=== PATIENT | male | born 1995 | race Caucasian/White ===

== ENCOUNTER 2024-06-04 08:35 | Observation (INO) | payer SELFPAY ==
[2024-06-04] MEDS ORDERED: ONDANSETRON 4 MG/2 ML VIAL ONE ×2 (09:16→10:55)
[2024-06-04] MEDS ORDERED: NA CHLORIDE 0.9% 1,000 ML ONE (09:16)
[2024-06-04] MEDS ORDERED: KETOROLAC 30 MG/ML INJ ONE ×2 (09:16→10:55)
[2024-06-04 09:19] LABS: Absolute Basophils 0.1 K/uL (0-0.5); Absolute Eosinophils 0.2 K/uL (0-0.5); Absolute Lymphocytes (CBC) 1.9 K/uL (0.7-4.9); Absolute Monocytes 1.2 K/uL (0.1-1.3); Absolute Neutrophil 13.1 K/uL (1.8-8.0); Basophils % 0.7 % (0-1.3); Eosinophils % 0.9 % (0-4.4); Hematocrit 40.8 % (39.6-49.0); Hemoglobin 13.7 g/dL (13.6-17.9); Lymphocytes % 11.8 % (15.3-44.8); MCH 31.1 pg (27.0-35.0); MCHC 33.7 g/dL (32.0-36.0); MCV 92.3 fL (80-100); MPV 7.3 fL (7.6-11.3); Neutrophils % 79.6 % (41.7-73.7); Platelets 329 thou/uL (152-406); RBC Red Blood Cell Count 4.42 M/uL (4.33-5.43); Red Cell Distribution Width 14.6 % (12.1-15.2)
[2024-06-04 09:23] LABS: Specific Gravity > 1.030 (1.005-1.030); Sqamous Epithelial None Seen /HPF (None Seen); Urine Bacteria None Seen /HPF (<20); Urine Bilirubin NEGATIVE (Negative); Urine Blood Negative (Negative); Urine Clarity Clear (Clear); Urine Color Yellow (Yellow); Urine Culture Reflex Order NOT NEEDED; Urine Glucose NEGATIVE (Negative); Urine Ketones NEGATIVE (Negative); Urine Microscopic Reflex YN ORDER UMIC; Urine Mucus Slight /HPF (None Seen); Urine Nitrite NEGATIVE (Negative); Urine Protein TRACE (Negative); Urine RBC <5 /HPF (None Seen); Urine Urobilinogen Normal (Normal); Urine WBC <5 /HPF (<5)
--- NOTE | 2024-06-04 09:29 | RAD REPORT ---
EXAM DESCRIPTION: CT - Abdomen Pelvis W Contrast - 06/04/2024 9:15 am CLINICAL HISTORY: Abdominal pain COMPARISON: none. TECHNIQUE: Computed axial tomography of the abdomen pelvis was obtained. 100 cc Isovue-300 was admin istered intravenously. Oral contrast was not requested which limits evaluation of bowel and appendix All CT scans are performed using dose optimization technique as appropriate and may include automated exposure control or mA/KV adjustment according to patient size. FINDINGS: 13 millimeter low to intermediate density splenic lesion. Liver, pancreas, adrenals and kidneys are unremarkable No evidence diverticulitis. The distal appendix is mildly enlarged. Increased density within the appendix may be appendicolith or contrast from previous exam. No stranding within the adjacent fat seen. Persist. No free air There is no evidence of diverticulitis. Mild posterior subluxation of L5 on S1 IMPRESSION: Mild enlargement of the distal appendix may indicate appendicitis
[2024-06-04 09:35] LABS: Anion Gap 8.7 mEq/L (5.0-15.0); Bilirubin Total 1.3 mg/dL (0.2-1.0); Globulin 4.1 g/dL (2.3-3.5); Potassium 3.7 mEq/L (3.5-5.1); Protein, Total 8.1 g/dL (6.4-8.2)
[2024-06-04] MEDS ORDERED: PIPERACIL/TAZO 3.375 GM VIAL IV ONE (09:42)
--- NOTE | 2024-06-04 09:42 | ER ---
Nurse's Notes [facility] Name: Tono Levin Age: 29 yrs Sex: Male : 1995 Arrival Date: 06/04/2024 Time: 08:35 Bed 20 Private MD: Diagnosis: Unspecified acute appendicitis Presentation: 06/04 08:42 Chief complaint: Patient states: stabbing abd pain since 3 am, has been having vomiting iw and diarrhea also. Coronavirus screen: Client presents with at least one sign or symptom that may indicate coronavirus-19. Ebola Screen: No symptoms or risks identified at this time. Initial Sepsis Screen: Does the patient meet any 2 criteria? No. Patient's initial sepsis screen is negative. Does the patient have a suspected source of infection? No. Patient's initial sepsis screen is negative. Risk Assessment: Do you want to hurt yourself or someone else? Patient reports no desire to harm self or others. Onset of symptoms was June 04, 2024. 08:42 Method Of Arrival: Ambulatory iw 08:42 Acuity: PITO 3 iw Triage Assessment: 08:45 General: Appears in no apparent distress. uncomfortable, Behavior is cooperative, bp appropriate for age, anxious. Pain: Complains of pain in abdomen. EENT: No deficits noted. GI: Reports nausea, vomiting. Historical: - Allergies: 08:44 No Known Allergies; iw - Home Meds: 08:44 None [Active]; iw - PMHx: 08:44 None; iw - PSHx: 08:44 None; iw - Immunization history:: Adult Immunizations not up to date. - Infectious Disease History:: Denies. - Social history:: Smoking status: Patient/guardian denies using tobacco, Stopped _ months ago 1. Screenin:05 [facility] ED Fall Risk Assessment (Adult) History of falling in the last 3 months, bp including since admission No falls in past 3 months (0 pts) Confusion or Disorientation No (0 pts) Intoxicated or Sedated No (0 pts) Impaired Gait No (0 pts) Mobility Assist Device Used No (0 pt) Altered Elimination No (0 pt) Score/Fall Risk Level 0 - 2 = Low Risk. Abuse screen: Denies threats or abuse. Denies injuries from another. Nutritional screening: No deficits noted. Tuberculosis screening: No symptoms or risk factors identified. Assessment: 08:45 General: Appears uncomfortable, Behavior is appropriate for age. Pain: Complains of bp pain in abdomen. 10:05 Reassessment: PT JEFFRY WITH OR. bp 10:06 GI: Bowel sounds present X 4 quads. Abdomen is tender to palpation X 4 quads. bp Vital Signs: 08:42 BP 125 / 89; Pulse 88; Resp 16; Temp 98.4; Pulse Ox 95% ; Weight 108.86 kg; Height 5 iw ft. 9 in. ; Pain 7/10; 08:42 Body Mass Index 35.44 (108.86 kg, 175.26 cm) iw 08:42 Pain Scale: Adult iw ED Course: 08:39 Patient arrived in ED. im 08:44 Triage completed. iw 08:44 Arm band placed on. iw 08:45 Иван Soliz, RN is Primary Nurse. bp 08:45 Titus Malin MD is Attending Physician. sp3 09:10 Initial lab(s) drawn, by me, sent to lab. Urine collected: clean catch specimen, clear. db Inserted saline lock: 20 gauge in right antecubital area, using aseptic technique. Blood collected. Flushed with 10 mL NS. 09:[address] db 09:17 CT Abd/Pelvis - IV Contrast Only In Process Unspecified. EDMS 09:41 Raciel Alva MD is Hospitalizing Provider. sp3 10:05 Patient has correct armband on for positive identification. Provided Education on: N/A. bp 10:05 No provider procedures requiring assistance completed. Patient admitted, IV remains in bp place. Administered Medications: 09:24 Drug: NS 0.9% IV 1000 ml IV at 1 bolus Per protocol; 1000 mL bolus Route: IV; Rate: 1 bp bolus; Site: right antecubital; 10:06 Follow up: IV Status: Completed infusion; IV Intake: 1000ml bp 09:24 Drug: TORadol - Ketorolac IVP 15 mg IVP once Route: IVP; Site: right antecubital; bp 09:35 Follow up: Response: No adverse reaction bp 09:24 Drug: Ondansetron IVP 4 mg IVP once; over 2 minutes Route: IVP; Site: right antecubital;bp 09:35 Follow up: Response: No adverse reaction bp 09:45 Drug: Piperacillin-Tazobactam IVPB 3.375 grams IVPB once over 60 mins; (mix in NS 100 bp mL) Route: IVPB; Infused Over: 60 mins; Site: right antecubital; 10:06 Follow up: IV Status: Completed infusion; IV Intake: 100ml bp Intake: 10:06 IV: 100ml; Total: 100ml. bp 10:06 IV: 1000ml; Total: 1100ml. bp Outcome: 09:42 Decision to Hospitalize by Provider. sp3 10:05 Admitted to OR accompanied by nurse, via stretcher, bp 10:05 Condition: stable 10:05 Instructed on the need for admit, 10:07 Patient left the ED. bp Signatures: Dispatcher [employer] EDPam Doyle, RN RN Иван Pedersen RN RN Titus Middleton MD MD sp3 Belia Harris RN RN China Cook im
--- NOTE | 2024-06-04 09:42 | EDPHYS ---
Physician Documentation [facility] Name: Tono Levin Age: 29 yrs Sex: Male : 1995 Arrival Date: 06/04/2024 Time: 08:35 Bed 20 Private MD: ED Physician Titus Malin HPI: 06/04 09:23 This 29 yrs old Male presents to ER via Ambulatory with complaints of Near Syncope, sp3 Abdominal Pain. 09:23 29-year-old male with no past medical history presents with diffuse abdominal pain, sp3 vomiting for the last 6 hours that started approximately 3 AM. He denies any past surgical history. Complaints are diffuse abdominal pain with vomiting without blood or mucus. He denies any diarrhea. He also denies fever, URI symptoms, chest pain, shortness of breath, extremity pain, rash or any other signs or symptoms on ROS at this time.. Historical: - Allergies: 08:44 No Known Allergies; iw - Home Meds: 08:44 None [Active]; iw - PMHx: 08:44 None; iw - PSHx: 08:44 None; iw - Immunization history:: Adult Immunizations not up to date. - Infectious Disease History:: Denies. - Social history:: Smoking status: Patient/guardian denies using tobacco, Stopped _ months ago 1. ROS: 09:23 Constitutional: Negative for fever, chills, and weight loss, Eyes: Negative for injury, sp3 pain, redness, and discharge, ENT: Negative for injury, pain, and discharge, Neck: Negative for injury, pain, and swelling, Cardiovascular: Negative for chest pain, palpitations, and edema, Respiratory: Negative for shortness of breath, cough, wheezing, and pleuritic chest pain, Back: Negative for injury and pain, MS/Extremity: Negative for injury and deformity, Skin: Negative for injury, rash, and discoloration, Neuro: Negative for headache, weakness, numbness, tingling, and seizure, Psych: Negative for depression, anxiety, suicide ideation, homicidal ideation, and hallucinations, Allergy/Immunology: Negative for hives, rash, and allergies, Endocrine: Negative for neck swelling, polydipsia, polyuria, polyphagia, and marked weight changes, Hematologic/Lymphatic: Negative for swollen nodes, abnormal bleeding, and unusual bruising, 09:23 All other systems are negative, Exam: 09:24 Constitutional: This is a well developed, well nourished patient who is awake, alert, sp3 and in no acute distress. Head/Face: Normocephalic, atraumatic. Eyes: Pupils equal round and reactive to light, extra-ocular motions intact. Lids and lashes normal. Conjunctiva and sclera are non-icteric and not injected. Cornea within normal limits. Periorbital areas with no swelling, redness, or edema. ENT: Nares patent. No nasal discharge, no septal abnormalities noted. External auditory canals are clear. Oropharynx with no redness, swelling, or masses, exudates, or evidence of obstruction, uvula midline. Mucous membranes moist. Neck: Trachea midline, no thyromegaly or masses palpated, and no cervical lymphadenopathy. Supple, full range of motion without nuchal rigidity, or vertebral point tenderness. No Meningismus. Chest/axilla: Normal chest wall appearance and motion. Nontender with no deformity. No lesions are appreciated. Cardiovascular: Regular rate and rhythm with a normal S1 and S2. No gallops, murmurs, or rubs. Normal PMI, no JVD. No pulse deficits. Respiratory: Lungs have equal breath sounds bilaterally, clear to auscultation and percussion. No rales, rhonchi or wheezes noted. No increased work of breathing, no retractions or nasal flaring. Back: No spinal tenderness. No costovertebral tenderness. Full range of motion. Skin: Warm, dry with normal turgor. Normal color with no rashes, no lesions, and no evidence of cellulitis. MS/ Extremity: Pulses equal, no cyanosis. Neurovascular intact. Full, normal range of motion. Neuro: Awake and alert, GCS 15, oriented to person, place, time, and situation. Cranial nerves II-XII grossly intact. Motor strength 5/5 in all extremities. Sensory grossly intact. Cerebellar exam normal. Normal gait. Psych: Awake, alert, with orientation to person, place and time. Behavior, mood, and affect are within normal limits. 09:24 Abdomen/GI: Pain to palpation periumbilical without peritoneal signs. Patient very nauseated and dry heaving., Vital Signs: 08:42 BP 125 / 89; Pulse 88; Resp 16; Temp 98.4; Pulse Ox 95% ; Weight 108.86 kg; Height 5 iw ft. 9 in. ; Pain 04/03; 08:42 Body Mass Index 35.44 (108.86 kg, 175.26 cm) iw 08:42 Pain Scale: Adult iw MDM: 08:54 Patient medically screened. sp3 09:25 Data reviewed: vital signs, nurses notes. ED course: 29-year-old male with sp3 periumbilical abdominal pain and vomiting. Differential diagnosis includes UTI/pyelonephritis spectrum, ureterolithiasis/kidney stone spectrum, appendicitis, other colitis, other intra-abdominal pathology, among others. I am not highly suspicious for sepsis, shock, aortic pathology, or any other critical illness. Disposition pending workup and patient course. Workup will include CT scan of the abdomen pelvis with IV contrast, laboratory values, urine analysis and general pain and nausea medication.. 09:40 ED course: Discussed with Dr. Alva who will be seeing patient in the ER. Patient sp3 probable appendicitis on CT and WBC count 16,000. Zosyn ordered and patient continues to be NPO.. 06/04 08:54 Order name: CBC with Diff; Complete Time: 09:22 sp3 06/04 08:54 Order name: CMP; Complete Time: 09:36 sp3 06/04 08:54 Order name: Lipase; Complete Time: 09:36 sp3 06/04 08:54 Order name: Urinalysis w/ reflexes; Complete Time: 09:26 sp3 06/04 08:54 Order name: CT Abd/Pelvis - IV Contrast Only; Complete Time: 09:32 sp3 06/04 08:54 Order name: IV Saline Lock; Complete Time: 09:14 sp3 06/04 08:54 Order name: Labs collected and sent; Complete Time: 09:14 sp3 Administered Medications: 09:24 Drug: NS 0.9% IV 1000 ml IV at 1 bolus Per protocol; 1000 mL bolus Route: IV; Rate: 1 bp bolus; Site: right antecubital; 10:06 Follow up: IV Status: Completed infusion; IV Intake: 1000ml bp 09:24 Drug: TORadol - Ketorolac IVP 15 mg IVP once Route: IVP; Site: right antecubital; bp 09:35 Follow up: Response: No adverse reaction bp 09:24 Drug: Ondansetron IVP 4 mg IVP once; over 2 minutes Route: IVP; Site: right antecubital;bp 09:35 Follow up: Response: No adverse reaction bp 09:45 Drug: Piperacillin-Tazobactam IVPB 3.375 grams IVPB once over 60 mins; (mix in NS 100 bp mL) Route: IVPB; Infused Over: 60 mins; Site: right antecubital; 10:06 Follow up: IV Status: Completed infusion; IV Intake: 100ml bp Disposition Summary: 06/04/24 09:42 Hospitalization Ordered Notes: Hospitalization Status: Observation sp3 Provider: Raciel Alva sp3 Location: Operating Room sp3 Condition: Stable sp3 Problem: new sp3 Symptoms: are unchanged sp3 Bed/Room Type: Standard sp3 Room Assignment: sp3 Diagnosis - Unspecified acute appendicitis sp3 Forms: - Medication Reconciliation Form sp3 - SBAR form sp3 - Leadership Thank You Letter sp3 Signatures: Dispatcher [employer] EDXavi Costa MD MD cha Williams, Irene, RN RN iw Peltier, Brian, RN RN bp Patel, Setul, MD MD sp3
[2024-06-04] MEDS ORDERED: propofoL 200 MG/20 ML VIAL IV ONE (10:11)
[2024-06-04] MEDS ORDERED: ROCURONIUM 50 MG/5 ML VIAL IV ONE (10:12)
[2024-06-04] MEDS ORDERED: MIDAZOLAM HCL 2 MG/2 ML INJ ONE (10:12)
[2024-06-04] MEDS ORDERED: FENTANYL CITR 100 MCG/2 ML ONE (10:12)
[2024-06-04] MEDS ORDERED: LIDOCAINE 2% MPF 5 ML VIAL ONE (10:12)
[2024-06-04] MEDS: Ringers Lactate 1,000 ML IV ONE (10:14)
[2024-06-04] MEDS ORDERED: dexAMETHasone 4 MG/ML VIAL ONE (10:55)
[2024-06-04] MEDS ORDERED: ONDANSETRON 4 MG/2 ML VIAL IV PRN (11:26)
[2024-06-04] MEDS ORDERED: MORPHINE 2 MG/ML SYR IV PRN (11:26)
[2024-06-04] MEDS ORDERED: SODIUM CHLORIDE 0.9% 10ML INJ IV PRN (11:26)
--- NOTE | 2024-06-04 11:26 | P.BOP ---
Preoperative diagnosis: Acute appendicitis, peritonitis Postoperative diagnosis: same Primary procedure: Laparoscopic appendectomy Estimated blood loss: <10cc Specimen: charly Findings: inflammed appendix with periappendiceal inflammation Anesthesia: General Complications: None Transferred to: Recovery Room Condition: Good
[2024-06-04] MEDS ORDERED: NEOSTIGMINE 1 MG/ML -10 ML VIAL ONE (11:29)
[2024-06-04] MEDS ORDERED: GLYCOPYRROLATE 0.2 MG/ML SYR ONE (11:29)
[2024-06-04 12:12] VITALS: BMI 35.4
--- NOTE | 2024-06-04 12:30 | OP ---
Date of Procedure: 06/04/2024 Surgeon: Raciel Alva MD Preoperative Diagnoses: Acute appendicitis, peritonitis, and nausea, and vomiting. Postoperative Diagnoses: Acute appendicitis, peritonitis, and nausea, and vomiting. Procedure: Laparoscopic appendectomy. Anesthesia: General plus local. Complications: None. Estimated Blood Loss: Less than 10 cc. Findings: Inflamed appendix with periappendiceal fat inflammation and peritonitis. Indications: This is a case of a 29-year-old patient who developed abdominal pain, found out to have acute appendicitis. Patient fully explained the benefits, alternatives, and risks of laparoscopic, possible open appendectomy, which include, but not limited to, infection, bleeding, damage to adjacen t structures, anesthesia complication, recurrence of colitis, [place], and even . He also understand s this may not relieve any symptoms. He might need more than one surgical intervention. He understo od, signed a consent. Description Of Procedure: The patient was brought to the operating room, placed in supine position. Anesthesia was done without complication. Abdominal area was prepped and draped in a sterile fashio n. Marcaine 0.5% was injected for local anesthetic followed by sharp incision of the skin in the inf raumbilical region after time-out was called. Incision was carried down to fascia, which was opened under direct vision. Vicryl #1 placed inside of the fascia. Sabine trocar was carefully introduced. Pneumoperitoneum was obtained. I placed 2 more trocars, 5 mm each one of them, 1 in suprapubic are a, another one in the left lower quadrant using same technique which consisted of local anesthetic, s harp incision of the skin, and introduction of the trocar under direct vision. The patient was then placed in Trendelenburg position right side up. We noticed the patient to have an inflamed appendix but the base of the appendix seemed to be spared, so we created a window in the base of the appendix, transected that with an Endo RAY 45 mm nonvascular and then the Endo-RAY 45 mm vascular was used to ligate the mesoappendix. Further hemostasis was obtained with the help of hemoclips. Appendix remov ed from abdominal cavity using EndoCatch through the umbilical incision. Area was irrigated and suct ion and we saw no bleeding. No bowel leak. At that moment, I proceeded to remove the trocars under direct vision, deflating the pneumoperitoneum, closed the fascia with #1 Vicryl, irrigated subcutaneo us tissue, closed that with 3-0 chromic and the skin with sandy. Sponge counts and instrument coun ts were correct. Patient tolerated the procedure well. Patient was sent to recovery in stable condi tion. ELLIOTT/VINCENT Voice ID: [id number] Report ID: [id number]
[2024-06-04] MEDS: NA CHLORIDE 0.9% 1,000 ML IV SCH (12:50)
[2024-06-04] MEDS: METRONIDAZOLE 500mg IVPB 500 MG/100 ML BAG IV SCH (12:51)
[2024-06-04] MEDS: CEFOXITIN 1 GM in NA CHLORIDE 0.9% 50 ML IVPB SCH (15:45)
--- NOTE | 2024-06-04 21:05 | HP ---
Date of Admission: 06/04/2024 Diagnosis: Acute appendicitis. History Of Present Illness: This is a case of a 29-year-old patient, woke up this morning with nause a, vomiting, periumbilical pain that moved to the right lower quadrant. The pain did not get better overnight, so he decided to come to the ER, diagnosed with acute appendicitis, and a surgical consult was obtained for evaluation. He denies any dysuria, hematuria, hematochezia, melena. He denies any recent traveling out of the country. Denies any family member sick at home. Allergies: NONE. Medications: None. Medical History: None. Surgical History: None. Social History: He used to smoke. He stopped about a month ago. He was counseled about the importa nce of smoking cessation and keep it that way. He also was advised the importance of losing weight. Review of Systems: See HPI. Nausea, vomiting, abdominal pain. No fever. Review of systems, 10 points, otherwise unrem arkable. Physical Examination: Vital Signs: Reviewed. General: The patient is awake, alert. HEENT: Pupils are equal and reactive. Anicteric. Neck: Supple. Chest: Clear. Heart: S1, S2. Abdomen: Abdominal tenderness, periumbilical right lower quadrant area with Rovsing sign positive. Rectal: Deferred. Breast: Deferred. Genitalia: Deferred. Extremities: Good capillary refill. Neurological: Cranial nerves 2 through 12 grossly within normal limits. Laboratory Data: Blood work shows WBC count of 16.4 with hemoglobin of 13.7, and platelets of 329. Potassium 3.7, creatinine is 1.14. CAT scan of the abdomen and pelvis, interpreted by Dr. Samaniego as a large end of the distal appendix may indicate appendicitis. Assessment: 29-year-old patient with right lower quadrant guarding and rebound, some leukocytosis, a nd a CAT scan consistent with a normal appendix. The patient was diagnosed with acute appendicitis. The benefits, alternatives, and risks of emergent laparoscopic, possible open appendectomy fully exp lained, which include, but not limited to, infection, bleeding, damage to adjacent structures, anesth esia complication, abscess, [place], and even . He also understands this may not relieve any symptom s. He might need more than one surgical intervention. He understood. The patient was emergently reji oked in OR. HM/MODL Voice ID: [id number]
[2024-06-05 07:05] LABS: Absolute Eosinophils 0.1 K/uL (0-0.5); Absolute Lymphocytes (CBC) 2.1 K/uL (0.7-4.9); Absolute Monocytes 1.5 K/uL (0.1-1.3); Absolute Neutrophil 10.6 K/uL (1.8-8.0); Basophils % 0.2 % (0-1.3); Eosinophils % 0.5 % (0-4.4); Hematocrit 32.8 % (39.6-49.0); Hemoglobin 11.1 g/dL (13.6-17.9); Lymphocytes % 14.6 % (15.3-44.8); MCH 31.1 pg (27.0-35.0); MCHC 33.9 g/dL (32.0-36.0); MCV 91.8 fL (80-100); MPV 7.3 fL (7.6-11.3); Monocytes % 10.3 % (3.3-12.3); Neutrophils % 74.4 % (41.7-73.7); Nucleated Red Blood Cells % 0.1 % (0-0); Platelets 293 thou/uL (152-406); RBC Red Blood Cell Count 3.58 M/uL (4.33-5.43); Red Cell Distribution Width 13.9 % (12.1-15.2)
[2024-06-05 07:18] LABS: Anion Gap 7.7 mEq/L (5.0-15.0); Potassium 3.7 mEq/L (3.5-5.1)
--- NOTE | 2024-06-05 08:37 | P.DS ---
Admission Date: 06/04/24 Discharge Date: 06/05/24 Disposition: ROUTINE DISCHARGE Discharge Condition: GOOD Brief History of Present Illness: RLQ abd pain , N V Hospital Course: unremarkable Vital Signs/Physical Exam: Temp Pulse Resp BP Pulse Ox 98.3 F 85 19 113/54 L 92 06/05/24 04:00 06/05/24 04:00 06/05/24 04:00 06/05/24 04:00 06/05/24 04:00 General: Alert, In no apparent distress, Oriented x3, Cooperative HEENT: Normocephalic, PERRLA Neck: Supple Respiratory: Normal air movement Cardiovascular: No edema, Normal pulses Gastrointestinal: Soft and benign Musculoskeletal: No erythema, No tenderness, No warmth Integumentary: No rashes, No breakdown, No erythema, No warmth, No cyanosis Neurological: Normal speech, Normal affect Laboratory Data at Discharge: WBC 14.20 thou/uL (4.3-10.9) H 06/05/24 05:50 Hgb 11.1 g/dL (13.6-17.9) L D 06/05/24 05:50 Hct 32.8 % (39.6-49.0) L 06/05/24 05:50 Plt Count 293 thou/uL (152-406) 06/05/24 05:50 Sodium 136 mEq/L (136-145) 06/05/24 05:50 Potassium 3.7 mEq/L (3.5-5.1) 06/05/24 05:50 BUN 15 mg/dL (7-18) 06/05/24 05:50 Creatinine 1.01 mg/dL (0.70-1.30) 06/05/24 05:50 Glucose 102 mg/dL (74-106) 06/05/24 05:50 Total Bilirubin 1.3 mg/dL (0.2-1.0) H 06/04/24 09:10 AST 18 U/L (15-37) 06/04/24 09:10 ALT 69 U/L (16-61) H 06/04/24 09:10 Alkaline Phosphatase 66 U/L (45-117) 06/04/24 09:10 Lipase 52 U/L (13-75) 06/04/24 09:10 Home Medications: NK [No Home Meds] 06/04/24 Physician Discharge Instructions: Kep area dry for 24h then may remove outer dressing and shower. Cover sandy with antibiotic ointment and bandaid Diet: Regular Activity: No lifting more than 10 lbs Followup: Raciel Alva MD [ACTIVE - CAN ADMIT] - 1 Week NONE,NONE [Primary Care Provider] -
[2024-06-05] MEDS: HYDROCODONE/APAP 5/325 MG TAB PO PRN (08:59)
[2024-06-05] MEDS: PANTOPRAZOLE 40 MG INJ IVP SCH (08:59)
[2024-06-05 10:41] VITALS: BP 100/53; TEMP 97.7; O2SAT 93
== END 2024-06-05 10:36 | disposition home or self-care (01) ==
LOC: ER 08:35 → ERHOLD 11:26 → 4TH 11:49
PROVIDERS: ADMIT Surgery; ATTEND Surgery
PROC: 0DTJ4ZZ Resection of Appendix, Percutaneous Endoscopic Approach (ICD-10-PCS; principal; 2024-06-04 10:00)
DX: K35.80 Unspecified acute appendicitis (principal); R11.2 Nausea with vomiting, unspecified
CPT/HCPCS: 36415; 74177; 80048; 80053; 81001; 83690; 85025; 88304; 94010; 96365; 96375; 99285; G0378; J0694; J1100; J2001; J2250; J2405; J2470; J2543; J2704; J2710; J3010; J7030; J7120; Q9967

== ENCOUNTER 2024-06-12 09:07 | Emergency (ER) | payer SELFPAY ==
--- NOTE | 2024-06-12 10:33 | ER ---
Nurse's Notes [facility] Name: Tono Levin Age: 29 yrs Sex: Male : 1995 Arrival Date: 06/12/2024 Time: 09:07 Bed 11 Private MD: Diagnosis: Encounter for other specified surgical aftercare-staple removal Presentation: 06/12 09:26 Chief complaint: Patient states: needs sandy removed s/p appendectomy on the . iw Coronavirus screen: At this time, the client does not indicate any symptoms associated with coronavirus-19. Ebola Screen: No symptoms or risks identified at this time. Initial Sepsis Screen: Does the patient meet any 2 criteria? No. Patient's initial sepsis screen is negative. Does the patient have a suspected source of infection? No. Patient's initial sepsis screen is negative. Risk Assessment: Do you want to hurt yourself or someone else? Patient reports no desire to harm self or others. Onset of symptoms was June 12, 2024. 09:26 Method Of Arrival: Ambulatory iw 09:26 Acuity: PITO 4 iw Triage Assessment: 10:00 General: Appears in no apparent distress. Behavior is calm, cooperative. iw Historical: - Allergies: 09:30 No Known Allergies; iw - Home Meds: 09:30 None [Active]; iw - PMHx: 09:30 None; iw - PSHx: 09:30 Appendectomy; iw Screenin:35 [facility] ED Fall Risk Assessment (Adult) History of falling in the last 3 months, iw including since admission No falls in past 3 months (0 pts) Confusion or Disorientation No (0 pts) Intoxicated or Sedated No (0 pts) Impaired Gait No (0 pts) Mobility Assist Device Used No (0 pt) Altered Elimination No (0 pt) Score/Fall Risk Level 0 - 2 = Low Risk Oriented to surroundings, Maintained a safe environment. Abuse screen: Denies threats or abuse. Denies injuries from another. Nutritional screening: No deficits noted. Tuberculosis screening: No symptoms or risk factors identified. Assessment: 10:00 General: Appears in no apparent distress. Behavior is calm, cooperative. Pain: Denies iw pain. Neuro: Level of Consciousness is awake, alert, obeys commands, Oriented to person, place, time, situation, Moves all extremities. Full function. Cardiovascular: Patient's skin is warm and dry. Respiratory: Respiratory effort is even, unlabored, Respiratory pattern is regular. Derm: Skin is normal. Musculoskeletal: Range of motion: intact in all extremities. Vital Signs: 09:26 BP 128 / 68; Pulse 82; Resp 16; Temp 97.6; Pulse Ox 97% on R/A; iw ED Course: 09:10 Patient arrived in ED. mg5 09:12 Xavi Hidalgo MD is Attending Physician. jimbo 09:30 Triage completed. iw 09:30 Arm band placed on. iw 10:00 Patient has correct armband on for positive identification. iw 10:31 Raciel Alva MD is Referral Physician. jimbo 10:35 No provider procedures requiring assistance completed. Patient did not have IV access iw during this emergency room visit. 10:36 Pam Martinez, RN is Primary Nurse. iw Administered Medications: No medications were administered Medication: 10:00 VIS not applicable for this client. iw Outcome: 10:32 Discharge ordered by . [facility] 10:35 Discharged to home ambulatory, iw 10:35 Condition: good 10:35 Discharge instructions given to patient, Instructed on discharge instructions, follow up and referral plans. Demonstrated understanding of instructions, follow-up care, 10:36 Patient left the ED. iw Signatures: Xavi Hidalgo MD MD cha Williams, Irene, RN RN Brynn Garcia mg5
--- NOTE | 2024-06-12 10:33 | EDPHYS ---
Physician Documentation [facility] Name: Tono Levin Age: 29 yrs Sex: Male : 1995 Arrival Date: 06/12/2024 Time: 09:07 Bed 11 Private MD: ED Physician Xavi Hidalgo HPI: 06/12 10:28 This 29 yrs old Male presents to ER via Ambulatory with complaints of Staple jimbo Removal. 10:28 The patient has silva on the abdomen. Previous treatment: The patient was initially jimbo treated 10 day(s) ago. Sutures/silva progress: The patient has no c/o's. The wound is well-healing with no redness, swelling, discharge, or dehiscence reported. The patient has not experienced similar symptoms in the past. Historical: - Allergies: : No Known Allergies; iw - Home Meds: : None [Active]; iw - PMHx: : None; iw - PSHx: :30 Appendectomy; iw ROS: 10:29 Constitutional: Negative for fever, chills, and weight loss, Eyes: Negative for injury, jimbo pain, redness, and discharge, ENT: Negative for injury, pain, and discharge, Neck: Negative for injury, pain, and swelling, Cardiovascular: Negative for chest pain, palpitations, and edema, Respiratory: Negative for shortness of breath, cough, wheezing, and pleuritic chest pain, Abdomen/GI: Negative for abdominal pain, nausea, vomiting, diarrhea, and constipation, Back: Negative for injury and pain, : Negative for injury, bleeding, discharge, and swelling, MS/Extremity: Negative for injury and deformity, Neuro: Negative for headache, weakness, numbness, tingling, and seizure, Psych: Negative for depression, anxiety, suicide ideation, homicidal ideation, and hallucinations, Allergy/Immunology: Negative for hives, rash, and allergies, Endocrine: Negative for neck swelling, polydipsia, polyuria, polyphagia, and marked weight changes, Hematologic/Lymphatic: Negative for swollen nodes, abnormal bleeding, and unusual bruising, 10:29 Skin: Positive for silva, Exam: 10:29 Constitutional: This is a well developed, well nourished patient who is awake, alert, jimbo and in no acute distress. Head/Face: Normocephalic, atraumatic. Eyes: Pupils equal round and reactive to light, extra-ocular motions intact. Lids and lashes normal. Conjunctiva and sclera are non-icteric and not injected. Cornea within normal limits. Periorbital areas with no swelling, redness, or edema. ENT: Nares patent. No nasal discharge, no septal abnormalities noted. Tympanic membranes are normal and external auditory canals are clear. Oropharynx with no redness, swelling, or masses, exudates, or evidence of obstruction, uvula midline. Mucous membranes moist. Neck: Trachea midline, no thyromegaly or masses palpated, and no cervical lymphadenopathy. Supple, full range of motion without nuchal rigidity, or vertebral point tenderness. No Meningismus. Chest/axilla: Normal chest wall appearance and motion. Nontender with no deformity. No lesions are appreciated. Cardiovascular: Regular rate and rhythm with a normal S1 and S2. No gallops, murmurs, or rubs. Normal PMI, no JVD. No pulse deficits. Respiratory: Lungs have equal breath sounds bilaterally, clear to auscultation and percussion. No rales, rhonchi or wheezes noted. No increased work of breathing, no retractions or nasal flaring. Abdomen/GI: Soft, non-tender, with normal bowel sounds. No distension or tympany. No guarding or rebound. No evidence of tenderness throughout. Back: No spinal tenderness. No costovertebral tenderness. Full range of motion. Male : Normal genitalia with no discharge or lesions. MS/ Extremity: Pulses equal, no cyanosis. Neurovascular intact. Full, normal range of motion. Neuro: Awake and alert, GCS 15, oriented to person, place, time, and situation. Cranial nerves II-XII grossly intact. Motor strength 5/5 in all extremities. Sensory grossly intact. Cerebellar exam normal. Normal gait. Psych: Awake, alert, with orientation to person, place and time. Behavior, mood, and affect are within normal limits. 10:29 Skin: Wound recheck: Staple laceration closure: the wound is healing well, the edges are well approximated, no evidence of dehiscence, no drainage, no erythema, no swelling, Vital Signs: 09:26 BP 128 / 68; Pulse 82; Resp 16; Temp 97.6; Pulse Ox 97% on R/A; iw MDM: 09:12 Patient medically screened. [facility] 10:30 Data reviewed: vital signs, nurses notes. Consideration of Admission/Observation jimbo Escalation of care including admission/observation considered. I considered the following discharge prescriptions or medication management in the emergency department Medications were administered in the Emergency Department. See MAR. Care significantly affected by the following chronic conditions: Obesity, none. Administered Medications: No medications were administered Disposition Summary: 06/12/24 10:32 Discharge Ordered Notes: Location: Home jimbo Problem: new jimbo Symptoms: have improved jimbo Condition: Stable jimbo Diagnosis - Encounter for other specified surgical aftercare - staple removal jimbo Followup: jimbo - With: Private Physician - When: 2 - 3 days - Reason: Recheck today's complaints, Continuance of care, Re-evaluation by your physician Followup: jimbo - With: Raciel Alva MD - When: 2 - 3 days - Reason: Recheck today's complaints, Re-evaluation by your physician Discharge Instructions: - Discharge Summary Sheet jimbo - Wound Care, Adult jimbo - Sutures, Silva, or Adhesive Wound Closure, [id number] jimbo Forms: - Medication Reconciliation Form jimbo - Antibiotic Education jimbo - Prescription Opioid Use jimbo - Patient Portal Instructions jimbo - Leadership Thank You Letter jimbo Signatures: Xavi Hidalgo MD MD cha Williams, Irene, RN RN iw
== END 2024-06-12 10:36 | disposition home or self-care (01) ==
LOC: ER 09:07
DX: Z48.02 Encounter for removal of sutures (principal)
CPT/HCPCS: 99282